=== PATIENT | female | born 1960 | race Hispanic/Latino ===

== ENCOUNTER 2019-04-20 07:21 | Day surgery (SDC) | payer BC ==
[~2019-04-20] VITALS: Ht 157.5 cm; Wt 75.7 kg
[~2019-04-20 07:21] MED LIST: SODIUM CHLORIDE 0.9% 1000ML 1,000 ML IV ONE
[2019-04-20 09:08] VITALS: BP 98/67
[2019-04-20] MEDS ORDERED: SERT25TA PO (09:18)
[2019-04-20] MEDS ORDERED: ONDA4TAB4 PO (09:18)
[2019-04-20] MEDS ORDERED: PANT40TA25 PO (09:18)
[2019-04-20] MEDS ORDERED: PROPOFOL 10 MG/ML 20ML VIAL IV ONE ×2 (11:59)
[2019-04-20 12:14] VITALS: BP 98/52
[2019-04-20 12:19] VITALS: BP 107/68
[2019-04-20 12:24] VITALS: BP 125/57
[2019-04-20 12:29] VITALS: BP 131/67
[2019-04-20 12:34] VITALS: BP 122/68
== END 2019-04-20 12:47 | disposition home or self-care (01) ==
LOC: SUH 07:21
PROVIDERS: ATTEND Surgery
DX: K29.50 Unspecified chronic gastritis without bleeding (principal); B96.81 Helicobacter pylori [H. pylori] as the cause of diseases classified elsewhere; E78.00 Pure hypercholesterolemia, unspecified; Z98.890 Other specified postprocedural states; Z79.899 Other long term (current) drug therapy; Z98.84 Bariatric surgery status; E66.01 Morbid (severe) obesity due to excess calories; Z68.31 Body mass index [BMI] 31.0-31.9, adult
CPT/HCPCS: 43239; 88305; A4215; A4221; A4222; A4223; A4606; A4620; A4663; J2704 ×2; J7030